=== PATIENT | male | born 1955 | race Caucasian/White ===

== ENCOUNTER → 2018-01-02 14:30 | Outpatient (CLI) | payer OTHER, SELFPAY ==
[2018-01-02 15:20] LABS: PSA,Total- Diagnostic 0.05 ng/mL (0.0-4.0)
== END ==
PROVIDERS: Family Provider Family Medicine; PCP Family Medicine; Visit Provider Urology
DX: Z85.46 Personal history of malignant neoplasm of prostate (principal)
CPT/HCPCS: 36415; 84153

== ENCOUNTER 2018-01-26 13:30 | Outpatient (RCR) | payer OTHER, SELFPAY ==
--- NOTE | 2017-12-26 11:05 | HP.PTEVAL ---
Patient's Visit Information DEANNA ALARCON is a 62 year old M referred to Physical Therapy by Yahir Stratton with a diagnosis of Lumbar Disc Disease. Date of Evaluation: 12/26/17 Physical Therapist: Lindsay Soto, PT - Visit Plan Frequency: 2x /Week Duration: 4 Weeks Plan: Dry needling 1x week to decrease pain and improve range of motion. Therapeutic exercises and activities to target BLE,core and low back strength, endurance and range of motion. Modalities as needed to decrease pain and increase range of motion. Incorporate HEP to promote maintainence and independence. - Subjective Subjective: Patient presents in therapy today with chief complaint of low back pain that has been going on for over a month after bending over to seed cone picker something. It initially started on the left side of his back and then started feeling pain in the right side about a week later. Reports cramping in legs bilaterally that seems almost constant. He had therapy in the past (2015) for the same issue and seen by Emily Oscar PT. He felt better after PT but thinks he over did it. He reports pain flares up more in sitting and bending. He states he is more functional when up walking. No numbness or tingling down the legs. He has not used medication or modalities to help with pain. PMHx: No noted conditions by patient. Has 50% tear in R Rotator Cuff; He works at [employer] and does a lot of walking and stairs without issue - Pain low back Pain Intensity (Out of 10): 5 Pain Intensity Range: 8 Comment: bend over to tie shoes increase pain - Objective Posture: Sitting slouched in chair left shoulder slightly lower than right; Aware of posture and will self correct but unable to maintain upright longer than 2 minute duration; Static standing equal WB through BLE. Range of Motion: Moderate limitation in lumbar extension and right/left sidebending; Mild limitation in lumbar flexion and rotation bilaterally; Pain with lumbar flexion and soreness with all other motions; B knee and hips WFL; BUE WFL with moderate winging of scapula bilaterally. Flexibility: B hamstrings -15* knee extension. Palpation: No reported tenderness or pain to palpation; Moderate tightness to palpation over lumbar paraspinals right worse than left; Equal ASIS and medial malleoli in supine; Limited spinal mobility with mobilization. Strength: BLE grossly 5/5 except hip extension bilaterally 4/5, bilateral hip abduction 4+/5, bilateral knee flexion 4/5, back extension 4/5, core 3+/5. Repeated movements: Patient showed preference to repeated movements with slight decrease in motion with prone on elbow 2 x 10 - Goals Goal 1:: Patient will increase lumbar ROM in all planes for improved mobility. Goal Time Frame: 4-6 Weeks Goal 2:: Patient will increase core and low back strength by 1 muscle grade for improved performance with functional activities. Goal Time Frame: 4-6 Weeks Goal 3:: Patient will lift an object from the ground for 5 repetitions displaying good posture without an increase in low back pain Goal Time Frame: 4-6 Weeks Goal 4:: Patient will display independence with HEP Goal Time Frame: 4-6 Weeks Goal 5:: Patient will maintain upright sitting posture for 5 minutes without verbal prompting Goal Time Frame: 4-6 Weeks Goal 6:: Patient will tolerate therapeutic exercises and activities for 10 minutes without increasing back symptoms Goal Time Frame: 4-6 Weeks - Rehabilitation Potential Physical Therapy Diagnosis: Muscle Weakness, Limited Range of Motion, Decreased Functional Activity Tolerance Rehabilitation Potential: Good - Anticipated Interventions Patient/Client Instruction: Educate patient on: Condition, Plan of Care For the Purpose of:: To decrease pain, To increase ROM, To improve muscle performance and motor function, To improve ability to perform ADL's, To improve performance and independence with ADL's, To decrease soft tissue restriction, To increase flexibility/ROM, To improve endurance Therapeutic Exercise to Include: Strength training, Endurance training, Body mechanics, Postural training, Flexibilty training, Gait and locomotor training, Neuromotor development, Passive ROM, Active ROM, Dynamic Lumbar Stabilization, Sarah Exercises For the Purpose of:: To increase ROM, To improve muscle performance and motor function, To improve ability to perform ADL's, To improve performance and independence with ADL's, To increase flexibility/ROM, To prevent re-injury Functional Training to Include: ADL Training, Functional work training For the Purpose of:: To improve muscle performance and motor function, To improve performance and independence with ADL's, To improve ability of physical actions for home/community/work/leisure Comment: massage not covered by insurance For the Purpose of:: To decrease pain, To increase ROM, To increase flexibility/ROM Iontophoresis (with Dexamethozone, with Acetic acid): No - not covered by insurance Comment: Dry Needling For the Purpose of:: To decrease pain, To increase ROM, To increase flexibility/ROM Thank you for the opportunity to evaluate your patient. For Medicare and Medicare HMO plans, please review the plan of care and approve it. It will need to be FAXED BACK to us at [phone] for Medicare purposes. Please let me know if there are questions or concerns regarding this plan of care. Physician Signature: Date:
--- NOTE | 2018-01-26 14:16 | HP.PTDCSUM ---
HP - PT D/C Summary It has been my pleasure to treat DEANNA ALARCON under orders from Yahir Stratton, for the diagnosis of Lumbar Disc Disease for a total of 8 visit(s). Discharge Date: 01/26/18 Please see the following information for a summary of their discharge status. - Subjective Subjective: At times pt feels that he has had a lot of improvement and other days he feels that he has had no improvement. - Pain low back Pain Intensity (Out of 10): 0 R PSIS area Pain Intensity (Out of 10): 4 - Objective Objective/Function: Slightly better trunk Ext ROM but still very limited. Increase pain with sit to stand transfers. Increase pain with every step the pt takes. - Goals Goal 1:: Patient will increase lumbar ROM in all planes for improved mobility. Goal 2:: Patient will increase core and low back strength by 1 muscle grade for improved performance with functional activities. Goal Progress: Not Progressing Goal 3:: Patient will lift an object from the ground for 5 repetitions displaying good posture without an increase in low back pain Goal Progress: Not Progressing Goal 4:: Patient will display independence with HEP Goal Progress: Goal Met Goal 5:: Patient will maintain upright sitting posture for 5 minutes without verbal prompting Goal Progress: Goal Met Goal 6:: Patient will tolerate therapeutic exercises and activities for 10 minutes without increasing back symptoms Goal Progress: Progressing - Plan Plan: Pt to return back to physician for possible injections or additional diagnostics as pt is not responding to centralization exercises and still has pain with every step he takes to some degree. DC PT - D/C Information Discharge Comments: DC PT to [facility] If there are questions or concerns regarding this patient's physical therapy, please feel free to call me at [phone]. Thank you for the referral of this patient. Sincerely, Emily Oscar
== END 2018-01-26 19:00 | disposition home or self-care (01) ==
LOC: PT 13:30
PROVIDERS: Family Provider Family Medicine; PCP Family Medicine; Visit Provider Family Medicine
DX: M51.16 Intervertebral disc disorders with radiculopathy, lumbar region (principal)
CPT/HCPCS: 97014; 97110; 97162; 97530; G0283

== ENCOUNTER 2018-06-01 08:30 | Outpatient (RCR) | payer OTHER, SELFPAY ==
--- NOTE | 2018-04-11 11:59 | HP.PTEVAL ---
Patient's Visit Information DEANNA ALARCON is a 63 year old M referred to Physical Therapy by Seamus Teran with a diagnosis of Lumbar Radiculopathy. Date of Evaluation: 04/11/18 Physical Therapist: Emily Oscar - Visit Plan Frequency: 2x /Week Duration: 4 Weeks Plan: 2X/ week for 4 weeks for Quad and HS foam rolling and stretching, core stability, SI stability, postural stability and body mechanics with HEP and modalities if needed. - Subjective Subjective: Pt reports that he went to see his Chiropractor and after 3 visits he had no pain but he still has some R sided back pain until he did too much at home. Pt wants some strengthening to keep his muscles toned up and hopefully keep the back pain away. Current pain is lower R side. No leg pain or foot pain. - Pain r back pain Pain Intensity (Out of 10): 1 - Objective Gait: Normal gait pattern. LE MMT: hip flex, hip abd, knee flex and knee ext B 4+/5 and B hip extension 4-/5. Pt is able to heel and toe walk without issue as far as strength. Tight HS complex B and tight hip flexor B. Hip IR is a little limited on the L than the R but no pain. B patellar DTR 1+/3 B. Trunk AROM: flexion 100%, ext 75%, SB R 75% and L 100%, Rot B 85% - Goals Goal 1:: I HEP Goal Time Frame: 4-6 Weeks Goal 2:: Increase hip ext strength to 4+/5 Goal Time Frame: 4-6 Weeks Goal 3:: Decrease R sided back pain to 0/10 Goal Time Frame: 4-6 Weeks - Rehabilitation Potential Rehabilitation Potential: Good - Anticipated Interventions Patient/Client Instruction: Educate patient on: Condition, Plan of Care For the Purpose of:: To decrease pain, To increase ROM, To improve nutrient delivery to tissue, To improve muscle performance and motor function, To improve ability to perform ADL's, To increase tolerance to activity/condition/position, To improve health of tissue, To increase flexibility/ROM Therapeutic Exercise to Include: Strength training, Body mechanics, Postural training, Flexibilty training, Passive ROM, Active ROM, Dynamic Lumbar Stabilization, Sarah Exercises, Scapular Strength/Stabilization For the Purpose of:: To decrease pain, To decrease swelling/inflammation, To increase ROM, To improve nutrient delivery to tissue, To improve muscle performance and motor function, To improve ability to perform ADL's, To increase tolerance to activity/condition/position, To improve performance and independence with ADL's, To improve ability of physical actions for home/community/work/leisure, To improve gait and locomotor functions, To improve health of tissue IF ES: Yes Cryotherapy (ice pack, ice massage): Yes Thermo therapy (hot pack): Yes Ultrasound (thermal/non thermal): Yes For the Purpose of:: To decrease pain, To decrease swelling/inflammation, To improve nutrient delivery to tissue, To improve muscle performance and motor function Thank you for the opportunity to evaluate your patient. For Medicare and Medicare HMO plans, please review the plan of care and approve it. It will need to be FAXED BACK to us at [phone] for Medicare purposes. Please let me know if there are questions or concerns regarding this plan of care. Physician Signature: Date:
--- NOTE | 2018-06-01 09:16 | HP.PTDCSUM ---
HP - PT D/C Summary It has been my pleasure to treat DEANNA ALARCON under orders from Seamus Teran, for the diagnosis of Lumbar Radiculopathy for a total of 9 visit(s). Discharge Date: 06/01/18 Please see the following information for a summary of their discharge status. - Subjective Subjective: Pt reports that he feels little better and less pain. Somedays he almost doesnt notice his pain at times. - Pain r back pain Pain Intensity (Out of 10): 1 - Overall Improvement % Improvement: 90 - Objective Objective/Function: Pt did better with Quad opp arm and leg with wrist weights instead of holding a dumb barragan. B hip extension 4+/5. Still tight HS and Quad B - Goals Goal 1:: I HEP Goal Progress: Goal Met Goal 2:: Increase hip ext strength to 4+/5 Goal Progress: Goal Met Goal 3:: Decrease R sided back pain to 0/10 Goal Progress: Progressing - Plan Plan: HEP given to pt with pictures and how to advance with copy to be scanned in the chart. - D/C Information Discharge Comments: DC PT to HEP If there are questions or concerns regarding this patient's physical therapy, please feel free to call me at [phone]. Thank you for the referral of this patient. Sincerely, Emily Oscar
== END 2018-06-01 15:05 | disposition home or self-care (01) ==
LOC: PT 08:30
PROVIDERS: Family Provider Family Medicine; PCP Family Medicine; Referring Provider Chiropractor; Visit Provider Chiropractor
DX: M54.16 Radiculopathy, lumbar region (principal)
CPT/HCPCS: 97110; 97161

== ENCOUNTER → 2018-07-05 11:43 | Outpatient (CLI) | payer OTHER, SELFPAY ==
[2018-07-05 13:30] LABS: PSA,Total - Annual Screen 0.04 ng/mL (0.00-4.00)
== END ==
PROVIDERS: Family Provider Family Medicine; PCP Family Medicine; Referring Provider Urology; Visit Provider Urology
DX: Z12.5 Encounter for screening for malignant neoplasm of prostate (principal)
CPT/HCPCS: 36415; 84153; 84403; G0103

== ENCOUNTER → 2019-01-07 | Outpatient (CLI) | payer OTHER, SELFPAY ==
[2019-01-07 13:05] LABS: PSA,Total- Diagnostic 0.04 ng/mL (0.0-4.0)
== END | disposition home or self-care (01) ==
LOC: LAB 11:51
PROVIDERS: Family Provider Family Medicine; PCP Family Medicine; Referring Provider Urology; Visit Provider Urology
DX: C61 Malignant neoplasm of prostate (principal)
CPT/HCPCS: 36415; 84153

== ENCOUNTER → 2019-03-22 14:16 | Outpatient (CLI) | payer OTHER, SELFPAY ==
[2019-03-22 15:24] LABS: Hematocrit 46.6 % (40-54); Hemoglobin 15.8 g/dL (13.0-16.5); Mean Corp Hgb Conc 33.9 g/dL (32-36); Mean Corpuscular Hgb 32.3 pg (27.0-32.0); Mean Corpuscular Volume 95.3 fL (80-94); Mean Platelet Vol. 10.7 fl (6.2-12.0); Platelet Count 279 K/mm3 (150-450); RBC Distribution Width CV 12.1 % (11.6-14.6); RBC Distribution Width SD 42.2 fl (35.1-43.9); Red Blood Count 4.89 M/mm3 (4.6-6.2); White Blood Count 6.1 K/mm3 (4.4-11.0)
[2019-03-22 15:59] LABS: Erythrocyte Sedimentation Rate 2 mm/hr (0-20)
[2019-03-22 16:03] LABS: ALB/GLOB Ratio 1.2 RATIO (0.9-2.4); AST(SGOT) 23 U/L (15-37); Alanine Aminotransfer ALT/SGPT 27 U/L (16-61); Albumin, Serum 3.6 g/dL (3.2-5.0); Alkaline Phosphatase 53 U/L (45-117); Anion Gap 6 (5-15); BUN 16 mg/dL (7-18); BUN/Creat Ratio 20.8 RATIO (10-20); Calcium,Total 8.5 mg/dL (8.5-10.1); Chloride 107 mmol/L (98-107); Creatinine, Serum 0.77 mg/dL (0.70-1.30); EST Glomerular Filtration Rate 108 mL/min (>60); Est Glom Filt Rate - Afr Amer 131 mL/min (>60); GGTP 18 U/L (15-85); Globulin 3.1 g/dL (2.2-4.2); Glucose 110 mg/dL (74-106); Potassium 4.2 mmol/L (3.5-5.1); Protein, Total 6.7 g/dL (6.4-8.2); Rheumatoid Factor < 10.0 IU/mL (<15); Sodium Level 141 mmol/L (136-145); T4 Total, Thyroxin 7.3 ug/dL (4.5-12.1); Thyroid Stim Hormone (TSH) 1.74 uIU/mL (0.358-3.74); Uric Acid 5.7 mg/dL (3.5-7.2)
[2019-03-26 03:07] LABS: Complement C3 91 mg/dL (82-167); Immunoglobulin A 194 mg/dL (61-437); Immunoglobulin G 889 mg/dL (700-1600); Lyme IgG P18 Ab Present (.); Lyme IgG P23 Ab Present (.); Lyme IgG P28 Ab Absent (.); Lyme IgG P30 Ab Absent (.); Lyme IgG P39 Ab Absent (.); Lyme IgG P41 Ab Absent (.); Lyme IgG P45 Ab Absent (.); Lyme IgG P58 Ab Absent (.); Lyme IgG P66 Ab Absent (.); Lyme IgG P93 Ab Present (.); Lyme IgM P23 Ab Absent (.); Lyme IgM P39 Ab Present (.); Lyme IgM P41 Ab Absent (.)
[2019-03-26 16:19] LABS: Complement CH50 57 U/mL (42-999999)
[2019-03-26 16:20] LABS: CMV Acute Antibody IgM < 30.0 AU/mL (0.0-29.9); CMV Antibody IgG < 0.60 U/mL (0.00-0.59); EBV Acute VCA IgM < 36.0 U/mL (0.0-35.9); EBV Early Antigen IgG 25.8 U/mL (0.0-8.9); Lyme IgG WB Interpretation Negative (.); Lyme IgM WB Interpretation Negative (.)
[2019-03-26 16:27] LABS: ANTINUCLEAR ANTIBODIES DIRECT Negative (Negative)
== END ==
PROVIDERS: Family Provider Family Medicine; PCP Family Medicine; Referring Provider Internal Medicine; Visit Provider Internal Medicine
DX: A69.20 Lyme disease, unspecified (principal); M25.50 Pain in unspecified joint; R53.83 Other fatigue
CPT/HCPCS: 36415; 80053; 82784; 82977; 84436; 84443; 84550; 85027; 85652; 86038; 86160; 86162; 86431; 86617; 86644; 86645; 86663; 86664; 86665

== ENCOUNTER → 2020-01-21 08:44 | Outpatient (CLI) | payer OTHER, SELFPAY ==
[2020-01-21 09:50] LABS: PSA,Total- Diagnostic 0.03 ng/mL (0.0-4.0)
== END ==
PROVIDERS: PCP Family Medicine; Referring Provider Urology; Visit Provider Urology
DX: Z85.46 Personal history of malignant neoplasm of prostate (principal)
CPT/HCPCS: 36415; 84153

== ENCOUNTER → 2021-01-11 11:08 | Outpatient (CLI) | payer OTHER, SELFPAY ==
[2021-01-11 12:02] LABS: PSA,Total- Diagnostic 0.06 ng/mL (0.0-4.0)
== END ==
PROVIDERS: PCP Family Medicine; Referring Provider Urology; Visit Provider Urology
DX: R97.21 Rising PSA following treatment for malignant neoplasm of prostate (principal)
CPT/HCPCS: 36415; 84153

== ENCOUNTER → 2022-02-01 | Outpatient (CLI) | payer OTHER, SELFPAY ==
[2022-02-01 16:03] LABS: PSA,Total- Diagnostic 0.06 ng/mL (0.0-4.0)
== END | disposition home or self-care (01) ==
LOC: LAB 14:57
PROVIDERS: PCP Family Medicine; Referring Provider Urology; Visit Provider Urology
DX: C61 Malignant neoplasm of prostate (principal)
CPT/HCPCS: 36415; 84153

== ENCOUNTER → 2023-01-30 | Outpatient (CLI) | payer OTHER, SELFPAY ==
[2023-01-30 17:08] LABS: PSA,Total- Diagnostic 0.04 ng/mL (0.0-4.0)
== END | disposition home or self-care (01) ==
PROVIDERS: PCP Family Medicine; Referring Provider Urology; Visit Provider Urology
DX: C61 Malignant neoplasm of prostate (principal)
CPT/HCPCS: 36415; 84153

== ENCOUNTER → 2024-10-07 | Outpatient (CLI) | payer OTHER, SELFPAY ==
[2024-10-07 13:01] LABS: PSA,Total- Diagnostic 0.04 ng/mL (0.00-4.00)
== END | disposition home or self-care (01) ==
LOC: LAB 11:12
PROVIDERS: PCP Family Medicine; Referring Provider Nurse Practitioner; Visit Provider Nurse Practitioner
DX: C61 Malignant neoplasm of prostate (principal)
CPT/HCPCS: 36415; 84153

== ENCOUNTER → 2025-04-28 | Outpatient (CLI) | payer MEDICARE, OTHER, SELFPAY ==
[2025-04-28 14:04] LABS: PSA,Total- Diagnostic 0.05 ng/mL (0.00-4.00)
== END | disposition home or self-care (01) ==
PROVIDERS: PCP Family Medicine; Referring Provider Urology; Visit Provider Urology
DX: C61 Malignant neoplasm of prostate (principal)
CPT/HCPCS: 36415; 84153